=== PATIENT | female | born 1945 | race Caucasian/White ===

== ENCOUNTER → 2024-04-16 07:51 | Outpatient (REF) | payer OTHER, SELFPAY | LOC: HWRAD 07:51 | PROVIDERS: FAMILY PHYSICIAN Hospitalist | DX: R41.0 Disorientation, unspecified (principal) | CPT/HCPCS: 70450 ==

== ENCOUNTER 2024-05-12 15:42 | Emergency (ER) | payer OTHER, MEDICARE, SELFPAY ==
[2024-05-12 15:46] VITALS: BP 204/98
[2024-05-12 16:07] LABS: % Basophils 0.5 % (0-2); % Eosinophils 0.6 % (0-6); % Immature Granulocytes 0.5 % (0-0.5); % Lymphocytes 23.2 % (20.5-51.1); % Monocytes 8.1 % (1.7-9.3); % Neutrophils 67.1 % (42.2-75.2); Absolute Eosinophils 0.1 10^3/uL (0-0.7); Absolute Monocytes 0.7 10^3/uL (0.1-0.6); Absolute Neutrophils 5.8 10^3/uL (1.4-6.5); Hematocrit 42.6 % (37.0-47.0); Hemoglobin 14.2 g/dL (12.0-16.0); Mean Corp Hgb Conc. 33.3 g/dL (33.0-37.0); Mean Corpuscular Hgb 29.2 pg (27.0-31.0); Mean Corpuscular Volume 87.5 fL (81.0-99.0); Mean Platelet Volume 9.8 fL (7.4-10.4); Nucleated Red Blood Cells % 0 %; Platelet Count 279 10^3/uL (130-400); Red Blood Cell Count 4.87 10^6/uL (4.20-5.40); Red Cell Dist. Width 12.2 % (11.5-14.5); White Blood Cell Count 8.7 10^3/uL (4.8-10.8)
--- NOTE | 2024-05-12 16:30 | ED.GENMED ---
History of Present Illness
General
Chief Complaint: Change in Mental Status
Source: patient and family (Daughter at bedside)
Exam Limitations: altered mental status
Time Seen by Provider: 05/12/24 16:24
Nursing documentation reviewed up to this point in time: agreed with
History of Present Illness
History of Present Illness:
78-year-old female with history of Alzheimer's, A-fib, HTN, HLD, GERD, pacemaker presents with her Daughter in law, Spring, who is primary childcare administrator at bedside who states pt has been more confused lately. States over past month pt has had
decrease in personal skills, increase in confusion.
One month ago had 'slightly positive' urine infection and finished 10 days antibiotics (she thinks Keflex) finished on 04/25/24.
Today states she took pt to [facility] today for f/u blood work and repeat U/A and pt was incontinent of urine and stool in her depends so they could not do U/A
She is requesting 'straight cath U/A and head CT'
Spring, states pt had head CT scan one month ago showing nothing acute.
Past History
Past History
ED Past Medical History: Arrthythmia (Afib), GERD, HTN, Hypercholesterolemia and Other (Alzheimer's )
ED Past Surgical History: Cardiac (pacemaker)
Social History
Tobacco: Non-smoker
Alcohol: None
Living: assisted living
Review of Systems
Review of Systems
Allergies reviewed?: Yes
All Other Systems: ROS reviewed and negative except as documented in HPI and ROS
Constitutional: Denies fever
Respiratory: Denies cough or trouble breathing
Cardiac: Denies chest pain
ABD/GI: Denies abdominal pain, nausea, vomiting, diarrhea or anorexia
: Reports incontinence; Denies dysuria or difficulty voiding
Musculoskeletal: Reports no symptoms
Skin: Reports no symptoms
Neurological: Reports no symptoms
Phy Exam
Physical Exam
Physical Exam:
GENERAL: No acute distress. Alert, disoriented.
CONSTITUTIONAL: Afebrile.
EYES: clear, conjunctivae normal
ENMT: moist mucus membranes
RESPIRATORY: Regular respirations, nonlabored, lungs clear.
CARDIOVASCULAR: Regular rate and rhythm, no murmurs, no rubs.
GI: Soft, nontender, normal BS
MUSCULOSKELETAL: Moves with ease. Well perfused. No edema
SKIN: Warm, dry, pink
PSYCH: Normal mood and affect. Well kept, interactive, confused
NEUROLOGIC: Awake, alert, confused. No focal neurological deficits
Course
Orders/Labs/Results
Orders:
Orders
05/12/24 15:58
C-Reactive Protein Urgent
Comment: ADD ON
Complete Blood Count/With Diff Urgent
Comprehensive Metabolic Panel Urgent
Erythrocyte Sed Rate Urgent
Comment: ADD ON
05/12/24 16:47
Straight cath- Treatment ONCE
CR Chest - 2 Views Urgent
Comment:
Reason For Exam: mental state chnge
05/12/24 17:32
COVID-19 Antigen Urgent
Source: Nasal Swab
Urinalysis Reflex To Culture Urgent
Date Specimen was Collected: 05/12/24
Time Specimen was Collected: 17:28
Urine Microscopic Reflex Cult Urgent
Influenza A+B Rapid Molecular Urgent
BRENNAN Source: Nasal Swab
Specimen Description:
05/12/24 18:32
CT Head W/o Iv Contrast Urgent
Comment:
Reason For Exam: more confused
05/12/24 18:40
Add On- LAB Urgent
Tests Added?: Sed rate, CRP
Abnormal Lab Results
05/12/24 05/12/24
15:58 17:32
Absolute Monos (auto) 0.7 H 10^3/uL
(0.1-0.6)
BUN 20 H mg/dl
(7-17)
Glucose 115 H mg/dl
(70-99)
Albumin 5.1 H g/dl
(3.5-5.0)
Ur Occult Blood Reflex 2+ A
(Negative)
Urine RBC 3-6 A /HPF
(0-2)
Urine Albumin (Reflex) 2+ A
(Neg - Trace)
05/12/24 15:58
05/12/24 15:58
Vital Signs
Initial and Last Documented VS:
Initial Vital Signs
Temp Pulse Resp BP Pulse Ox
97.5 F 91 18 204/98 97
05/12/24 15:46 05/12/24 15:46 05/12/24 15:46 05/12/24 15:46 05/12/24 15:46
Last Documented Vital Signs
Temp Pulse Resp BP Pulse Ox
97.5 F 70 17 140/94 97
05/12/24 15:46 05/12/24 18:45 05/12/24 18:45 05/12/24 20:00 05/12/24 20:00
MDM/Problems Addressed
Differential Diagnosis Includes:
Alzheimer's progression, UTI
MDM/Problems Addressed:
78-year-old female with history of Alzheimer's, A-fib, HTN, HLD, GERD, pacemaker presents with her Daughter in law, Spring, who is primary childcare administrator at bedside who states pt has been more confused lately. States over past month pt has had
decrease in personal skills, increase in confusion.
One month ago had 'slightly positive' urine infection and finished 10 days antibiotics (she thinks Keflex) finished on 04/25/24.
Today states she took pt to [facility] today for f/u blood work and repeat U/A and pt was incontinent of urine and stool in her depends so they could not do U/A
She is requesting 'straight cath U/A and head CT'
Spring, states pt had head CT scan one month ago showing nothing acute.
CBC, CMP unremarkable
U/A: no infection
CXR: NAD
Records reviewed:
Had CT scan 04/16/24 showing chronic microvascular white matter ischemia disease, no change from previous in 01/2024
Although I explained that mini strokes won't typically show on CT, would need MRI, Spring insistent on getting another head CT.
8:[address] radiology report read: IMPRESSION:
No acute intracranial abnormality noted.
Stable chronic findings
*Critical Care Note
Total Time (30-74mins, 75-104mins- exclusive of procedures): Not Applicable
ED Attending Note
-
Portions of this chart may have been created with voice recognition software.� Occasional wrong word or��sound alike� substitutions may have occurred due to the inherent limitations of voice recognition software.
Discharge Plan
Departure
Patient Disposition: Home (Routine Discharge)
Date of Disposition: 05/12/24
Time of Disposition: 20:10
Patient with high blood pressure during this ER visit?: No
Condition: Good
Discharge Problem:
Dementia
Instructions: Dementia (DC)
Referrals:
Gisel Larose, DO [Family Provider] - As needed
Activity Restrictions/Additional Instructions:
As we discussed, Jinny's workup here shows nothing worrisome.
This may be progression of dementia.
Interventions
Interventions:
*Risk Screen - Suicide Last Done: 05/12/24 15:46
*General Assessment Last Done: 05/12/24 15:46
*Neglect/Abuse Screening Last Done: 05/12/24 15:46
ED- Fall Risk Assessment Last Done: 05/12/24 19:11
*ED COVID-19 Vaccine History Last Done: 05/12/24 15:46
ED- Pulmonary Assessment Last Done: 05/12/24 19:11
ED- Neurological Assessment Last Done: 05/12/24 19:11
ED- Cardiac Assessment Last Done: 05/12/24 19:11
ED Swallowing Screen Last Done: 05/12/24 19:11
Discharge Date and Time
Print Language: UZBEK
[2024-05-12 16:37] LABS: ALT (SGPT) 17 U/L (0-35); AST (SGOT) 25 U/L (14-36); Albumin 5.1 g/dl (3.5-5.0); Alkaline Phosphatase 66 U/L (38-126); Blood Urea Nitrogen 20 mg/dl (7-17); Calcium 9.4 mg/dl (8.4-10.2); Carbon Dioxide 24 mmol/L (22-30); Chloride 103 mmol/L (98-107); Glucose 115 mg/dl (70-99); Potassium 3.5 mmol/L (3.5-5.1); Sodium 140 mmol/L (135-145); Total Protein 7.5 g/dl (6.3-8.2); eGFR > 60.00
[2024-05-12 17:32] VITALS: BP 182/80
[2024-05-12 17:55] LABS: Urine Albumin 2+ (Neg - Trace); Urine Bilirubin Negative (Negative); Urine Character Clear (Clear); Urine Color Yellow; Urine Glucose Negative (Negative); Urine Ketone Negative (Negative); Urine Leukocyte Negative (Negative); Urine Nitrite Negative (Negative); Urine Occult Blood 2+ (Negative); Urine Urobilinogen Negative (Neg - 1+)
[2024-05-12 18:04] LABS: COVID-19 Antigen Negative (Negative)
[2024-05-12 19:00] VITALS: BP 191/84
[2024-05-12 19:06] LABS: Urine Calcium Oxalate Crystals Present
[2024-05-12 19:07] LABS: Urine Urothelial Cell 0-2 /LPF (FEW)
[2024-05-12 19:26] LABS: C-Reactive Protein < 5.00 mg/L (0.0-10.00); Erythrocyte Sed Rate 18 mm/hour (0-20)
[2024-05-12 20:00] VITALS: BP 140/94
== END 2024-05-12 20:32 | disposition home or self-care (01) ==
LOC: EMR 15:42
PROVIDERS: Registered Nurse; EMERGENCY PHYSICIAN Student in an Organized Health Care Education/Training Program; FAMILY PHYSICIAN Hospitalist; OTHER PHYSICIAN Internal Medicine Cardiovascular Disease
DX: G30.9 Alzheimer's disease, unspecified (principal); F02.80 Dementia in other diseases classified elsewhere, unspecified severity, without behavioral disturbance, psychotic disturbance, mood disturbance, and anxiety; R32 Unspecified urinary incontinence; I10 Essential (primary) hypertension; Z11.52 Encounter for screening for COVID-19; K21.9 Gastro-esophageal reflux disease without esophagitis; Z95.0 Presence of cardiac pacemaker; I48.91 Unspecified atrial fibrillation
CPT/HCPCS: 99285; 51701; 70450; 71046; 80053; 81003; 81015; 85025; 85652; 86140; 87502; 87811

== ENCOUNTER → 2024-06-18 10:52 | Outpatient (REF) | payer MEDICARE, OTHER, SELFPAY ==
[2024-06-18 11:21] LABS: % Basophils 0.8 % (0-2); % Immature Granulocytes 0.2 % (0-0.5); % Lymphocytes 38.1 % (20.5-51.1); % Monocytes 6.2 % (1.7-9.3); % Neutrophils 52.7 % (42.2-75.2); Absolute Eosinophils 0.1 10^3/uL (0-0.7); Absolute Lymphocytes 1.9 10^3/uL (1.2-3.4); Absolute Monocytes 0.3 10^3/uL (0.1-0.6); Absolute Neutrophils 2.6 10^3/uL (1.4-6.5); Hematocrit 42.7 % (37.0-47.0); Hemoglobin 13.9 g/dL (12.0-16.0); Mean Corp Hgb Conc. 32.6 g/dL (33.0-37.0); Mean Corpuscular Hgb 29.1 pg (27.0-31.0); Mean Corpuscular Volume 89.3 fL (81.0-99.0); Mean Platelet Volume 10.3 fL (7.4-10.4); Nucleated Red Blood Cells % 0 %; Platelet Count 291 10^3/uL (130-400); Red Blood Cell Count 4.78 10^6/uL (4.20-5.40); Red Cell Dist. Width 12.5 % (11.5-14.5)
[2024-06-18 11:55] LABS: ALT (SGPT) 14 U/L (0-35); AST (SGOT) 20 U/L (14-36); Albumin 4.2 g/dl (3.5-5.0); Alkaline Phosphatase 85 U/L (38-126); Blood Urea Nitrogen 20 mg/dl (7-17); Calcium 9.5 mg/dl (8.4-10.2); Carbon Dioxide 24 mmol/L (22-30); Chloride 108 mmol/L (98-107); Glucose 110 mg/dl (70-99); Potassium 4.5 mmol/L (3.5-5.1); Sodium 139 mmol/L (135-145); Total Bilirubin 0.7 mg/dl (0.2-1.3); Total Protein 6.6 g/dl (6.3-8.2); eGFR > 60.00
[2024-06-18 12:37] LABS: Glycohemoglobin (HgbA1c) 5.5 % (4.0-5.6)
== END ==
LOC: OLABMERCHI 10:52
PROVIDERS: FAMILY PHYSICIAN Hospitalist
DX: R73.01 Impaired fasting glucose (principal)
CPT/HCPCS: 36415; 80053; 83036; 85025

== ENCOUNTER 2024-09-24 15:11 | Inpatient (IN) | payer MEDICARE, SELFPAY ==
[2024-09-22 21:34] VITALS: BP 103/51
[2024-09-22 21:55] LABS: Hematocrit 39.1 % (37.0-47.0); Hemoglobin 13.0 g/dL (12.0-16.0); Mean Corp Hgb Conc. 33.2 g/dL (33.0-37.0); Mean Corpuscular Volume 86.7 fL (81.0-99.0); Nucleated Red Blood Cells % 0 %; Platelet Count 261 10^3/uL (130-400); Red Cell Dist. Width 12.5 % (11.5-14.5)
[2024-09-22 22:14] LABS: ALT (SGPT) 13 U/L (0-35); AST (SGOT) 22 U/L (14-36); Albumin 4.6 g/dl (3.5-5.0); Alkaline Phosphatase 53 U/L (38-126); Blood Urea Nitrogen 53 mg/dl (7-17); Calcium 9.4 mg/dl (8.4-10.2); Carbon Dioxide 24 mmol/L (22-30); Chloride 114 mmol/L (98-107); Glucose 111 mg/dl (70-99); Potassium 3.4 mmol/L (3.5-5.1); Sodium 146 mmol/L (135-145); Total Protein 7.0 g/dl (6.3-8.2); eGFR 38.51
[2024-09-22 23:24] VITALS: BP 126/110; BMI 22.9
[2024-09-23] VITALS (16 sets, daily range): BP systolic 91–157; BP diastolic 41–110; PULSE 76; O2SAT 95; BMI 22.9; BMI 23.6
--- NOTE | 2024-09-23 00:30 | ED.GENMED ---
History of Present Illness
General
Chief Complaint: Change in Mental Status
Source: patient and family
Exam Limitations: none
Time Seen by Provider: 09/23/24 00:20
History of Present Illness
History of Present Illness:
See MDM
Past History
Past History
ED Past Medical History: Arrthythmia (Afib), GERD, HTN, Hypercholesterolemia and Other (Alzheimer's )
ED Past Surgical History: Cardiac (pacemaker)
Social History
Tobacco: Non-smoker
Alcohol: None
Living: assisted living
Phy Exam
Physical Exam
Physical Exam:
See MDM
Sepsis
Sepsis Screening
Sepsis Assessment: Sepsis Ruled Out
Sepsis Screen
Sepsis Screen: Sepsis Ruled Out
Date: 09/23/24
Time: 01:22
Course
Orders/Labs/Results
Orders:
Orders
09/22/24 21:39
Electrocardiogram (*1) Urgent
Reason for Study: Other
Other Reason for Exam: Possible Sepsis
IV Insert/Care/Rem.- Treatment PRN
09/22/24 21:47
Complete Blood Count/With Diff Urgent
Comprehensive Metabolic Panel Urgent
09/23/24 00:30
0.9% Sodium Chloride 1000 ml [Nss] 1,000 ml IV BOLUS
09/23/24 02:09
Urinalysis Reflex To Culture Urgent
Date Specimen was Collected: 09/23/24
Time Specimen was Collected: 02:08
Urine Microscopic Reflex Cult Urgent
Urine Culture Urgent
BRENNAN Source: U
Specimen Description:
Date Specimen was Collected: 09/23/24
Time Specimen was Collected: 02:08
09/23/24 03:16
Fosfomycin [Monurol] 3 gm PO ONCE ONE
Abnormal Lab Results
09/22/24 09/23/24
21:47 02:09
Absolute Lymphs (auto) 3.5 H 10^3/uL
(1.2-3.4)
Sodium 146 H mmol/L
(135-145)
Potassium 3.4 L mmol/L
(3.5-5.1)
Chloride 114 H mmol/L
(98-107)
BUN 53 H mg/dl
(7-17)
Creatinine 1.4 H mg/dL
(0.6-1.0)
Glucose 111 H mg/dl
(70-99)
Total Bilirubin 1.4 H mg/dl
(0.2-1.3)
Urine WBC (Reflex) 16-20 A /HPF
(0-5)
Urine Bacteria (Reflex) Moderate A
(Negative)
Urine Albumin (Reflex) 1+ A
(Neg - Trace)
09/22/24 21:47
09/22/24 21:47
Vital Signs
Initial and Last Documented VS:
Initial Vital Signs
Temp Pulse Resp BP Pulse Ox
98.4 F 73 18 103/51 93
09/22/24 21:34 09/22/24 21:34 09/22/24 21:34 09/22/24 21:34 09/22/24 21:34
Last Documented Vital Signs
Temp Pulse Resp BP Pulse Ox
97.7 F 70 14 109/65 95
09/23/24 02:25 09/23/24 01:45 09/23/24 01:45 09/23/24 01:00 09/23/24 01:30
MDM/Problems Addressed
Differential Diagnosis Includes:
Note:
CHIEF COMPLAINT(S)
Confusion and behavioral changes.
HISTORY OF PRESENT ILLNESS
The patient is a 78-year-old female with a history suggestive of susceptibility to urinary tract infections (UTIs), presenting with increased confusion and behavioral changes. Significant changes noted include refusal to get out of bed,
belligerence, and inappropriate behavior over the past days. These symptoms have been associated with an increase in her Seroquel (quetiapine) dosage approximately one month ago, with a recent dose increase prior to the current episode. According to
the family, she has exhibited poor oral intake and possible signs of dehydration. There is also mention of ataxic walking and repetitive behaviors. The patients primary care and neurology providers have been involved and are considering dehydration
and a UTI as potential causes. The patient reports no headaches, chest pain, shortness of breath, known fever, or classic UTI symptoms, although there is mention of changes in urine odor. The family confirms a decrease in fluid intake, correlating
with observed dry oral mucosa. Emergency department intervention will include intravenous fluids and urinalysis to investigate possible infection.
Patient lives at [facility] and family indicating that the staff is suggesting that she now needs 24-hour care
ADDITIONAL HISTORY OBTAINED FROM SOURCES OTHER THAN THE PATIENT
According to the family, a recent increase in quetiapine was made by the neurologist, and the patient exhibited drastic changes in her mental state concurrently. Additionally, the family reports decreased food and fluid intake, and the independent
living facility suggests she may require 24-hour care.
PHYSICAL EXAM
General: Well appearing and non-toxic
HEENT: protecting airway. Dry mucous membranes
Neck: appears supple
CV: No evidence of cyanosis
Resp: No accessory muscle use
Abd: Non-distended. Soft and nontender
Extremities: No deformities
Neuro: alert
Psych: Normal affect
Skin: Intact
- Nursing notes reviewed and vital signs reviewed.
PLAN
- Administer intravenous fluids for dehydration.
- Obtain and analyze urine sample to rule out infection.
- Consider empirical antibiotic treatment with fosfomycin (Monurol) pending urinalysis results.
- Evaluate potential need for increased care level at nursing facility, coordinate with case management, and consider admission for physical therapy.
- Discuss with family the decrease in oral intake and possible medication review or adjustment for quetiapine based on symptoms.
DIFFERENTIAL DIAGNOSIS
The Differential Diagnosis includes, in no particular order and is not limited to:
- Urinary tract infection
- Dehydration
- Medication side effects (Seroquel)
- Stroke or transient ischemic attack
- Dementia progression
- Hypernatremia
- Delirium
- Depression or other psychiatric conditions
- Electrolyte imbalance
- Acute confusion due to systemic infection
SUMMARY OF ENCOUNTER
The patient, a 78-year-old female with a history suggestive of prior strokes and susceptibility to urinary tract infections, was seen in the emergency department due to increased confusion and behavioral changes. Significant changes noted include
refusal to get out of bed, belligerence, and inappropriate behavior, which had been associated with an increase in her Seroquel dosage. Her symptoms include poor oral intake and possible dehydration. A urinalysis was ordered due to suspected UTI and
hydration issues. Intervention included administering intravenous fluids and empirical antibiotic treatment with fosfomycin, considering the presence of bacteria in the urine. Also, given the patients altered mental status and decreased care
capacity, admission was planned for further evaluation.
DISPOSITION
The patient will be admitted overnight for physical therapy evaluation, case management, and further disposition planning.
MANAGEMENT OF THE PATIENTS CARE WAS DISCUSSED WITH
Family and hospice were involved in discussions regarding the patients need for a higher level of care as suggested by her independent living facility.
MEDICATION RECONCILIATION
Fosfomycin was prescribed empirically for suspected UTI due to the presence of bacteria in the urine. Intravenous fluids were administered for dehydration.
MEDICAL DECISION MAKING
1. Number & Complexity of Problems: Chronic conditions affecting care include susceptibility to urinary tract infections and possible prior strokes. Differential diagnoses considered include UTI, dehydration, medication side effects, stroke or
transient ischemic attack, dementia progression, delirium, and electrolyte imbalance.
2. Data Reviewed: Urine sample analysis revealing bacteria prompted the initiation of empirical antibiotic therapy and consideration of admission for hydration and further evaluation.
3. Risk: Consideration of admission was made due to the complexity and risk associated with dehydration, UTIs, and the patients altered mental status. Outpatient management was deemed inappropriate based on the need for further evaluation and lack
of adequate care at the current facility.
PATHOLOGIES TO CONSIDER
Delirium, dehydration, urinary tract infection, medication side effects, stroke or transient ischemic attack, dementia progression, systemic infection causing acute confusion.
*Pulse Oximetry
SaO2: 96
Oxygen Mode of Delivery: Room air
Patient hypoxic: no
*Critical Care Note
Total Time (30-74mins, 75-104mins- exclusive of procedures): Not Applicable
ED Attending Note
-
Portions of this chart may have been created with voice recognition software.� Occasional wrong word or��sound alike� substitutions may have occurred due to the inherent limitations of voice recognition software.
Discharge Plan
Departure
Patient Disposition: Admit
Date of Disposition: 09/23/24
Time of Disposition: 03:21
Admit to: Med/Surg
Presentation/result/management discussed w/ accepting MD/DO: Hospitalist
Discharge Problem:
Acute dehydration, Altered mental status
Referrals:
Gisel Larose DO [Family Provider, General]
Interventions
Interventions:
*Risk Screen - Suicide Last Done: 09/22/24 21:34
*General Assessment Last Done: 09/22/24 23:26
*Neglect/Abuse Screening Last Done: 09/22/24 21:34
*ED- Fall Risk Assessment Last Done: 09/22/24 23:25
*ED COVID-19 Vaccine History Last Done: 09/22/24 23:25
ED- Neurological Assessment Last Done: 09/22/24 23:27
ED- Cardiac Assessment Last Done: 09/22/24 23:28
Discharge Date and Time
Print Language: TURKISH
[2024-09-23] MEDS: NSS 1000 IV (00:40)
[2024-09-23 02:19] LABS: Urine Character Slightly Cloudy (Clear)
[2024-09-23 03:03] LABS: Urine Red Blood Cell None Seen /HPF (0-2); Urine White Cell 16-20 /HPF (0-5)
[2024-09-23] MEDS: MONUROL 3 GM PO (03:33)
--- NOTE | 2024-09-23 05:24 | HPS.HSE ---
Family Physician
-
Family Physician: Gisel Larose DO
Chief Complaint
-
Altered mental status
History of Present Illness
This is a 78-year-old who has past medical history significant for dementia, atrial fibrillation on anticoagulation, hyperlipidemia, GERD and hypertension who presents to the emergency department with worsening declining mental status.
According to family members at the bedside patient has been diagnosed with dementia likely Alzheimer's for several months now. They noticed today that she started having a significant decline about 1 month ago when her behavior started to change.
She often returns back to her baseline. However for the last 1 week she has remained in an altered state compared to baseline.
Family members reported that since the last 1 week after trip to a wedding ceremony the patient has been more belligerent. She has not been eating. She has been pushing family away. She has been compliant with her medications and there have been
slight increases in Seroquel for agitation. She has continued to take her Namenda.
Family reports no sick contacts. They do not think she has a urinary tract infection although she has had several in the past. She has not been having any vomiting. They did note intermittent loose stools but not frequent diarrhea. She has not
had any fevers or chills. She has not had any falls. It has been no focal deficits.
In the emergency department the patient was afebrile, blood pressure was 110/60 with a pulse of 71. She is satting 95% on room air.
ECG shows paced rhythm.
CBC was unremarkable. Electrolytes notable for SENG with a creatinine of 1.4 up from 0.8 at baseline. She has mild hypokalemia to 3.4 and a sodium of 146.
UA is generally negative only with WBCs and moderate bacteria but no leukocyte esterase or nitrite.
Medical History
Past Medical History
Past Medical History: Reports Arrhythmia (Atrial fibrillation status post ablation, pacemaker placement), Dementia, GERD, HTN, Hypercholesterolemia and Other
Past Surgical History: Reports None
Social History
Tobacco: Non-smoker
Alcohol: None
Drug: None
Personal:
Living: With Family
Employment: Retired
Family History
Family History: Not pertinent
Allergies / Home Medications
Allergies reflects when Allergies were last updated in [employer].
Home Medications with original date entered in [employer]
Allergy/Medication List:
Allergies
Allergy/AdvReac Type Severity Reaction Status Date / Time
Calcium Channel Blocking Allergy Unknown Verified 05/12/24 15:48
Agent Dilt
Valsartan 80 mg tablet, 80 mg p.o. daily
Pantoprazole 20 mg tablet, 20 mg p.o. daily
Carvedilol 6.25 mg tablets, 6.5 mg p.o. twice daily
Namenda 10 mg tablet, 10 mg p.o. twice daily
Rivastigmine 13.3 mg patch, 30.3 mg daily
Xarelto 15 mg tablet, 50 mg p.o. every afternoon
Atorvastatin 40 mg tablets, 40 mg p.o. at bedtime
Seroquel 25 mg tablet, 25 mg p.o. in the a.m.
Seroquel 50 mg tablet, 50 mg p.o. at bedtime
Review of Systems
-
Unable to obtain full review of systems at this time due to: Dementia
History Source: Family
Constitutional: Reports Sleep Disturbance
EENT: Reports No Symptoms
Respiratory: Reports No Symptoms
Cardiac: Reports No Symptoms
Abdomen/GI: Reports No Symptoms
: Reports No Symptoms
Musculoskeletal: Reports No Symptoms
Skin: Reports No Symptoms
Neurological: Reports No Symptoms
Endocrine: Reports No Symptoms
Hematologic/Lymphatic: Reports No Symptoms
Psych: Reports Anxiety and Other (Agitation and combativeness)
Physical Exam
Vital Signs
Vital Signs
Temp Pulse Resp BP Pulse Ox
97.7 F 72 17 103/62 95
09/23/24 02:25 09/23/24 04:00 09/23/24 04:00 09/23/24 03:00 09/23/24 03:45
Physical Exam
General: Well Developed, Well Nourished and No Apparent Distress
HEENT: NormoCephalic, Moist mucous membranes and Atraumatic
Respiratory: Clear
Cardiac: S1/S2 and Regular Rhythm; No Murmur or Rub
GI: Soft, Non Tender, Non Distended and Normal Bowel Sounds; No Organomegaly
Rectal: Deferred by Provider
Musculoskeletal: No Clubbing, No Cyanosis and No Edema
Skin: No Rash
Neuro: Alert and Oriented (Oriented to person only)
Hematologic/Lymphatic: No Lymphadenopathy
Psych: Calm
Laboratory Results
-
09/22/24 21:47
09/22/24 21:47
Laboratory Results
Total Bilirubin 1.4 mg/dl (0.2-1.3) H 09/22/24 21:47
AST 22 U/L (14-36) 09/22/24 21:47
ALT 13 U/L (0-35) 09/22/24 21:47
Alkaline Phosphatase 53 U/L (38-126) 09/22/24 21:47
Data Reviewed
-
Medical Tests (Nuc Med, Echo, EKG etc): Image Personally Visualized and interpreted
Lab Data: Labs Reviewed by me
Old Records: Reviewed
Impression/Plan
-
IMPRESSION:
78-year-old with history of dementia likely of Alzheimer's type, atrial fibrillation on anticoagulation with Xarelto, hypertension, hyperlipidemia, GERD who presents to the emergency department after 1 week of changes in mental status. This is
typified by more aggressive behavior otherwise somnolence and belligerence. The UA shows WBCs and bacteria but no nitrites or leukocyte esterase and she has no urinary symptoms otherwise. She has no other signs of an acute infection. She has SENG
with mild hypokalemia and hyponatremia. Suspect dehydration due to low p.o. intake but likely not the etiology of decline. Patient is generally suspected to decline progressively over time but appears to have had a steep decline lately.
PLAN:
Altered mental status -staff decline in progressive dementia without any acute cause and no focal logical deficit
-Admit to MedSurg
-Will obtain CT head to rule out a subacute stroke
-Check COVID, influenza
-Check TSH, B12 folate TSH and RPR
-Urine culture sent
-Status post fosfomycin x 1
-Hydration
-Continue on Namenda twice daily, continue the Seroquel
� Consider psych consult
- PT eval
SENG�mild SENG with prerenal azotemia appearing labs
- Continue gentle hydration with lactated Ringer's at this time. R
replete K, mag
- Hold valsartan
Atrial fibrillation
-Continue Xarelto
- Continue Coreg
DVT prophylaxis�on Xarelto
CODE STATUS�full code, family to call with more detailed information in the morning
[2024-09-23 06:31] LABS: Hematocrit 36.0 % (37.0-47.0); Hemoglobin 11.8 g/dL (12.0-16.0); Mean Corp Hgb Conc. 32.8 g/dL (33.0-37.0); Mean Corpuscular Volume 88.9 fL (81.0-99.0); Platelet Count 226 10^3/uL (130-400); Red Cell Dist. Width 12.2 % (11.5-14.5)
[2024-09-23] MEDS: LR 1000 IV ×2 (06:41→18:24)
[2024-09-23 06:59] LABS: Ammonia < 9 umol/L (9-30)
[2024-09-23 07:00] LABS: Blood Urea Nitrogen 43 mg/dl (7-17); Calcium 8.4 mg/dl (8.4-10.2); Carbon Dioxide 23 mmol/L (22-30); Chloride 117 mmol/L (98-107); Estimated Creatinine Clearance 37 ml/min; Glucose 110 mg/dl (70-99); Magnesium 1.9 mg/dl (1.6-2.3); Potassium 3.0 mmol/L (3.5-5.1); Sodium 146 mmol/L (135-145); eGFR 57.66
[2024-09-23 07:02] LABS: COVID-19 Antigen Negative (Negative)
[2024-09-23 07:31] LABS: TSH 1.37 uIU/ml (0.47-4.68)
[2024-09-23] MEDS: PROTONIX 20 MG PO (07:38)
[2024-09-23] MEDS: NAMENDA 10 MG PO ×2 (07:38→19:53)
[2024-09-23] MEDS: SEROQUEL 25 MG PO (07:38)
[2024-09-23] MEDS: COREG 6.25 MG PO ×2 (07:38→19:53)
[2024-09-23 07:50] LABS: Vitamin B12 369 pg/ml (239-931)
[2024-09-23] MEDS: EXELON PATCH 13.3 MG TRANSDERM (08:17)
--- NOTE | 2024-09-23 09:37 | PTCARENOTE ---
Spoke w/ daughter Spring - she spoke w/ textile cutting machine operator who said her pacemaker is MRI compatible - [employer] MRI quad VF4 model #[id number]
--- NOTE | 2024-09-23 12:17 | CM ---
CM reviewed chart and spoke to pt's daughter Spring over the phone. MALIKA reviewed.
Pt lives alone in [place] apartment at [facility].
Independent in ADLs, personal care and ambulation.
Per Spring, [facility] recently suggested higher LOC or 24 hour caregivers as pt becoming increasingly confused.
Spring lives close and provides support, is interested in Memory Care Units.
List of SNF with memory care units and list of caregiver agencies left at bedside. I encouraged her daughter to read facility reviews on Medicare.gov.
PCP: Gisel Larose
Pharmacy: [facility]
Discharge plan: Pending ongoing medical evaluation
--- NOTE | 2024-09-23 13:45 | W.PN.UPDATE ---
Update Note
Progress Note Update
Seen and admitted by Dr. Law.
Lady with dementia admitted with worsening and out of function and noted to have SENG and as well as possibility of UTI. Patient currently afebrile hemodynamically stable. She thought she is in [place]. She was corrected easily. She is
redirectable. No agitation noted by RN. Improved creatinine noted. Continue with the current treatments including IV fluids. Follow urinary culture data.
[2024-09-23] MEDS: KCL 40 MEQ PO (14:16)
[2024-09-23] MEDS: LIPITOR 40 MG PO (17:10)
[2024-09-23] MEDS: XARELTO 15 MG PO (17:10)
[2024-09-23] MEDS: SEROQUEL 50 MG PO (21:45)
[2024-09-24 07:35] VITALS: BP 130/81
[2024-09-24 07:46] LABS: Hematocrit 34.8 % (37.0-47.0); Hemoglobin 11.6 g/dL (12.0-16.0); Mean Corp Hgb Conc. 33.3 g/dL (33.0-37.0); Mean Corpuscular Volume 86.4 fL (81.0-99.0); Platelet Count 226 10^3/uL (130-400); Red Cell Dist. Width 12.0 % (11.5-14.5)
[2024-09-24] MEDS: LR 1000 IV (08:15)
[2024-09-24] MEDS: PROTONIX 20 MG PO (08:33)
[2024-09-24] MEDS: NAMENDA 10 MG PO ×2 (08:33→19:43)
[2024-09-24] MEDS: COREG 6.25 MG PO ×2 (08:33→19:43)
[2024-09-24] MEDS: SEROQUEL 25 MG PO (08:33)
[2024-09-24] MEDS: EXELON PATCH 13.3 MG TRANSDERM (08:55)
--- NOTE | 2024-09-24 10:22 | CM ---
Addendum entered by Maggy Gardner 09/24/24 10:24:
call placed to daughter, Daughter is asking for OT consult and reviewing options for placement. Plan to meet later today to review options. CM will continue to follow for discharge planning needs.
Original Note:
Patient seen at bedside with aide present. Patient stated that she was doing well. CM will call to patient daughter and review next steps. Physical therapy recommending 24/7 supervision for safety. CM will continue to follow for discharge planning
needs.
Plan:Memory Care/personal care for cognition supports.
[2024-09-24 11:11] LABS: Blood Urea Nitrogen 24 mg/dl (7-17); Calcium 8.9 mg/dl (8.4-10.2); Carbon Dioxide 23 mmol/L (22-30); Chloride 117 mmol/L (98-107); Estimated Creatinine Clearance 46 ml/min; Glucose 93 mg/dl (70-99); Potassium 4.1 mmol/L (3.5-5.1); Sodium 145 mmol/L (135-145); eGFR > 60.00
--- NOTE | 2024-09-24 11:40 | W.PN.HOSP.TC ---
Today's Communication/Plan
-
Hold further IV fluids. Encourage oral intake.
Follow urine culture data
Follow-up PT OT eval
DC planning
Assessment / Plan
Assessment / Plan
78-year-old with history of dementia likely of Alzheimer's type, atrial fibrillation on anticoagulation with Xarelto, hypertension, hyperlipidemia, GERD who presents to the emergency department after 1 week of changes in mental status. This is
typified by more aggressive behavior otherwise somnolence and belligerence. The UA shows WBCs and bacteria but no nitrites or leukocyte esterase and she has no urinary symptoms otherwise. She has no other signs of an acute infection. She has SENG
with mild hypokalemia and hyponatremia. Suspect dehydration due to low p.o. intake but likely not the etiology of decline. Patient is generally suspected to decline progressively over time but appears to have had a steep decline lately.
PLAN:
Altered mental status
Decline than her baseline dementia status
Patient noted to be in SENG and there is a concern about possible UTI with pyuria.
No acute GI losses evident. No obvious external bleeding. Tolerating oral diet.
Patient received antibiotics in the ER. Follow urine culture data.
Check PT OT eval and follow the family regarding her current cognitive state compared to baseline
SENG�mild SENG with prerenal azotemia appearing labs
- Normalized creatinine. Hold further IV fluids.
- Hold valsartan
Atrial fibrillation
-Continue Xarelto
- Continue Coreg
DVT prophylaxis�on Xarelto
CODE STATUS�full code
Anticipated Discharge: Within 24 hours
Subjective/Interval History
-
Date of Service: September 24, 2024
Patient is confused but pleasant and no agitation.
Voicing no specific complaints.
Discussed with RN-no overnight events.
Patient eating and drinking without nausea or vomiting.
Objective Data
-
Labs:
Laboratory Results
09/24/24
07:29
WBC 4.8
Hgb 11.6 L
Hct 34.8 L
Plt Count 226
Sodium 145
Potassium 4.1 D
Chloride 117 H
Carbon Dioxide 23
BUN 24 H
Creatinine 0.8
Glucose 93
Calcium 8.9
Vital Signs:
Vital Signs
Temp Pulse Resp BP Pulse Ox
97.6 F 72 17 130/81 97
09/24/24 07:35 09/24/24 08:33 09/24/24 07:35 09/24/24 08:33 09/24/24 07:35
I&O
09/23/24 09/24/24 09/25/24
06:59 06:59 06:59
Intake Total 900 / 900
Balance 900 / 900
Review of Systems
-
Unable to obtain full review of systems at this time due to: Dementia
Physical Exam
-
Respiratory: Non Labored Respirations; Negative Accessory Resp Muscle Use
Cardiac: Regular Rhythm and S1/S2; Negative Tachycardic
GI: Soft and Nontender
Neuro: Awake, Alert and Oriented (Self only)
Psych: Calm and Confused; Negative Agitated
Data Reviewed
-
Labs: Labs Reviewed by me
[2024-09-24 15:06] VITALS: BP 116/63
[2024-09-24] MEDS: SEROQUEL 50 MG PO (17:57)
[2024-09-24] MEDS: XARELTO 15 MG PO (17:57)
[2024-09-24] MEDS: LIPITOR 40 MG PO (17:58)
[2024-09-24 18:51] LABS: Hepatitis C Antibody Negative (Negative)
--- NOTE | 2024-09-24 23:29 | PTCARENOTE ---
While attempting to get vital signs at 2300, pt would not allow this stating, 'Leave me alone, no.' Earlier this nurse attempted to get pt's B/P and she began to sit up in the bed and got very agitated. Once B/P cuff was removed, pt laid back down
and went to sleep. Will attempt to move pt into 418-2 when pt gets up to use the bathroom.
[2024-09-25 07:08] VITALS: BP 177/98
[2024-09-25] MEDS: EXELON PATCH 13.3 MG TRANSDERM (08:16)
[2024-09-25] MEDS: NAMENDA 10 MG PO ×2 (08:19→19:38)
[2024-09-25] MEDS: PROTONIX 20 MG PO (08:19)
[2024-09-25] MEDS: COREG 6.25 MG PO ×2 (08:19→19:39)
[2024-09-25] MEDS: SEROQUEL 25 MG PO (08:20)
--- NOTE | 2024-09-25 11:37 | CM ---
Addendum entered by Lynnette Dow 09/25/24 15:19:
Patient daughter requesting referral to [facility], placed in [facility].
Original Note:
CM reviewed chart, patient seen bedside asleep in bed, spoke with [facility] ([place]). Per SUDHAKAR, patient resides at [facility], has been increasingly belligerent and reports patient is unable to return to [facility] unless with 24 hr care.
SUDHAKAR reports they are having a meeting with [facility] early next week in regards to higher level of care. SUDHAKAR would be in agreement for SNF for patient if recommended. SUDHAKAR requesting paperwork completed by Hospitalist to sent to cousin who is a
[employer], patient has VA benefits and looking for assistance. CM will continue to follow for all discharge planning needs. TT to Hospitalist for OT orders.
Plan; family agreeable to SNF if needed, unable to return to [facility] unless 24 hr care, OT to eval patient
[2024-09-25] MEDS: UNASYN IV ×2 (12:08→17:15)
--- NOTE | 2024-09-25 13:53 | W.PN.HOSP.TC ---
Addendum entered and electronically signed by Otis Oh MD 09/28/24 13:51:
Change in MS secondary to toxic encephalopathy.
Hx of Afib - unable to characterize afib as rhythm is AV paced
Original Note:
Today's Communication/Plan
-
Start on unasyn
Follow UCX
DC planning
Assessment / Plan
Assessment / Plan
78-year-old with history of dementia likely of Alzheimer's type, atrial fibrillation on anticoagulation with Xarelto, hypertension, hyperlipidemia, GERD who presents to the emergency department after 1 week of changes in mental status. This is
typified by more aggressive behavior otherwise somnolence and belligerence. The UA shows WBCs and bacteria but no nitrites or leukocyte esterase and she has no urinary symptoms otherwise. She has no other signs of an acute infection. She has SENG
with mild hypokalemia and hyponatremia. Suspect dehydration due to low p.o. intake but likely not the etiology of decline. Patient is generally suspected to decline progressively over time but appears to have had a steep decline lately.
PLAN:
Altered mental status
More decline than her baseline dementia status
Patient noted to be in SENG and there is a concern about possible UTI with pyuria.
No acute GI losses evident. No obvious external bleeding. Tolerating oral diet.
Remains confused but no agitation needing medications so far.
CW reorientation and support
UTI
UCx showing Enterococcus and aerococcus - start on IV unasyn and follow sensitivities
SENG�mild SENG with prerenal azotemia appearing labs
- Normalized creatinine. Hold further IV fluids.
HTN - resume valsartan as BP is high now
Atrial fibrillation
-Continue Xarelto
- Continue Coreg
DVT prophylaxis�on Xarelto
CODE STATUS�full code
CW PT and OT
DW daughter
DC in am if stable and UCX data is back
Anticipated Discharge: Within 24 hours
Subjective/Interval History
-
Date of Service: September 25, 2024
Remains confused but no agitation .
Not back at baseline per family.
Voicing no specific complaints.
She is alert and oriented to place and person today her recall was 0 out of 3 today. She doesnt know why she is in hospital.
Objective Data
-
Vital Signs:
Vital Signs
Temp Pulse Resp BP Pulse Ox
98 F 72 20 177/98 96
09/25/24 07:08 09/25/24 08:19 09/25/24 07:08 09/25/24 08:19 09/25/24 07:08
I&O
09/24/24 09/25/24 09/26/24
06:59 06:59 06:59
Intake Total 900 / 900 120 / 120
Balance 900 / 900 120 / 120
Review of Systems
-
Unable to obtain full review of systems at this time due to: Dementia
Physical Exam
-
General: Comfortable
Respiratory: Clear to Auscultation (anteriorly) and Non Labored Respirations; Negative Accessory Resp Muscle Use
Cardiac: Regular Rhythm and S1/S2; Negative Tachycardic
GI: Soft
Neuro: Awake, Alert, Oriented and No Motor Deficits
Psych: Calm and Confused; Negative Agitated
Data Reviewed
-
Labs: Labs Reviewed by me
[2024-09-25 14:23] LABS: Syphilis/T. pallidum Ab Reflex Negative (Negative)
[2024-09-25 15:02] VITALS: BP 196/96
--- NOTE | 2024-09-25 15:11 | PN.CDI ---
CDI
- -
CDI:
Physician Documentation Request
Admit Date: 09/24/24 15:11
Dear Doctor,
Please review the following and provide your response in the progress notes.
Clinical Indicators:
Pt admitted for altered mental status, SENG, and UTI.
Pt with History of Afib-
'Atrial fibrillation
-Continue Xarelto
- Continue Coreg'
If possible, please provide further specificity regarding atrial fibrillation, such as:
Paroxysmal atrial fibrillation - terminates spontaneously or with intervention within 7 days of onset
Persistent atrial fibrillation - episodes of continuous AF that last more than 7 days and do not self-terminate
Permanent atrial fibrillation - when a decision has been made to accept the presence of AF and there is no further attempt to restore or maintain sinus rhythm
Other - please specify
Unable to further specify
Use of terms such as suspected, likely, concern for, or probable (associated with a specific diagnosis that is being evaluated, monitored, or treated as if it exists) are acceptable and can be coded in the inpatient setting, when documented at the
time of discharge.
Thank you,
Dinah Palomino RN, BSN
CDI Specialist
[place] [facility]
Please use your independent medical judgment in providing your response.
[2024-09-25 15:13] VITALS: BP 160/87
--- NOTE | 2024-09-25 15:16 | PN.CDI ---
CDI
- -
CDI:
Physician Documentation Request
Admit Date: 09/24/24 15:11
Dear Doctor,
Please review the following and provide your response in the progress notes.
Clinical Indicators:
Pt admitted for altered mental status, SENG, and UTI.
09/24 Progress Note: ' Altered mental status...
More decline than her baseline dementia status....
Patient is generally suspected to decline progressively over time but appears to have had a steep decline lately...
UTI
UCx showing Enterococcus and aerococcus - start on IV unasyn and follow sensitivities
SENG�mild SENG with prerenal azotemia appearing labs'
Based on the above, could you clarify in the Progress Notes and Discharge Summary which, if any of the following, is the most likely etiology of the confusion/altered mental status.
Encephalopathy - Please indicate type, such as metabolic, toxic, etc. due to a specific condition such as UTI, CVA, hyponatremia etc.
Dementia only
Other
Use of terms such as suspected, likely, concern for, or probable (associated with a specific diagnosis that is being evaluated, monitored, or treated as if it exists) are acceptable and can be coded in the inpatient setting, when documented at the
time of discharge.
Thank you,
Dinah Palomino RN, BSN
CDI Specialist
[place] [facility]
Please use your independent medical judgment in providing your response.
[2024-09-25] MEDS: DIOVAN 80 MG PO (15:24)
[2024-09-25] MEDS: SEROQUEL 50 MG PO (17:14)
[2024-09-25] MEDS: XARELTO 15 MG PO (17:15)
[2024-09-25] MEDS: LIPITOR 40 MG PO (17:15)
[2024-09-25 23:15] VITALS: BP 140/69
[2024-09-26] MEDS: UNASYN IV ×5 (00:11→23:03)
[2024-09-26 07:15] VITALS: BP 170/93
[2024-09-26] MEDS: EXELON PATCH 13.3 MG TRANSDERM (08:11)
[2024-09-26] MEDS: DIOVAN 80 MG PO (08:15)
[2024-09-26] MEDS: COREG 6.25 MG PO ×2 (08:15→19:47)
[2024-09-26] MEDS: SEROQUEL 25 MG PO (08:16)
[2024-09-26] MEDS: NAMENDA 10 MG PO ×2 (08:16→19:47)
[2024-09-26] MEDS: PROTONIX 20 MG PO (08:16)
--- NOTE | 2024-09-26 10:28 | W.PN.HOSP.TC ---
Today's Communication/Plan
-
needs SNF and sensitivities of urine culture
Assessment / Plan
Assessment / Plan
pt is a 78 year old female
Altered mental status--More decline than her baseline dementia status at admission--found to have Enterococcus and aerococcus UTI and SENG (resolved)--likely cause--cannot return to [facility]--cont IV unasyn--narrow as able
SENG�mild SENG with prerenal azotemia appearing labs- Normalized creatinine
Essential HTN - resume valsartan as BP is high now
paroxysmal Atrial fibrillation-Continue Xarelto- Continue Coreg
DVT proph�on Xarelto
CODE STATUS�full code
Anticipated Discharge: Within 24 hours
Subjective/Interval History
-
Date of Service: September 26, 2024
pt without c/o--pleasantly confused
Objective Data
-
Vital Signs:
max temp for 24 hours
09/26/24
07:15
Temp 97.8 F
Vital Signs
Temp Pulse Resp BP Pulse Ox
97.8 F 74 20 170/93 96
09/26/24 07:15 09/26/24 07:15 09/26/24 07:15 09/26/24 07:15 09/26/24 07:15
I&O
09/25/24 09/26/24 09/27/24
06:59 06:59 06:59
Intake Total 120 / 120 780 / 780
Balance 120 / 120 780 / 780
Review of Systems
-
Unable to obtain full review of systems at this time due to: Dementia
All other systems: Reviewed and negative
Physical Exam
-
General: Well Developed, Well Nourished and No Apparent Distress
HEENT: Normocephalic and Atraumatic
Respiratory: Clear to Auscultation; Negative Wheezes or Crackles
Cardiac: Regular Rhythm and S1/S2; Negative Murmur
GI: Soft, Nontender, Nondistended and Normal Bowel Sounds
Musculoskeletal: No Clubbing and No Cyanosis; Negative No Edema (left arm swollen (charu wraps in place))
Neuro: Awake
Psych: Confused and Apparent Dementia
[2024-09-26 15:23] VITALS: BP 158/77
[2024-09-26] MEDS: SEROQUEL 50 MG PO (17:31)
[2024-09-26] MEDS: XARELTO 15 MG PO (17:31)
[2024-09-26] MEDS: LIPITOR 40 MG PO (17:31)
[2024-09-26 23:00] VITALS: BP 125/60
[2024-09-27] MEDS: UNASYN IV ×4 (05:58→23:55)
[2024-09-27 06:49] LABS: Hematocrit 36.2 % (37.0-47.0); Hemoglobin 12.2 g/dL (12.0-16.0); Mean Corp Hgb Conc. 33.7 g/dL (33.0-37.0); Mean Corpuscular Volume 85.4 fL (81.0-99.0); Platelet Count 237 10^3/uL (130-400); Red Cell Dist. Width 12.3 % (11.5-14.5)
[2024-09-27 07:00] VITALS: BP 142/62
[2024-09-27 07:20] LABS: Blood Urea Nitrogen 10 mg/dl (7-17); Calcium 8.6 mg/dl (8.4-10.2); Carbon Dioxide 27 mmol/L (22-30); Chloride 111 mmol/L (98-107); Estimated Creatinine Clearance 46 ml/min; Glucose 93 mg/dl (70-99); Magnesium 1.7 mg/dl (1.6-2.3); Potassium 4.0 mmol/L (3.5-5.1); Sodium 143 mmol/L (135-145); eGFR > 60.00
[2024-09-27] MEDS: EXELON PATCH 13.3 MG TRANSDERM (09:13)
[2024-09-27] MEDS: SEROQUEL 25 MG PO (09:13)
[2024-09-27] MEDS: DIOVAN 80 MG PO (09:14)
[2024-09-27] MEDS: PROTONIX 20 MG PO (09:14)
[2024-09-27] MEDS: COREG 6.25 MG PO ×2 (09:14→19:49)
[2024-09-27] MEDS: NAMENDA 10 MG PO ×2 (09:14→19:49)
--- NOTE | 2024-09-27 12:10 | W.PN.HOSP.TC ---
Today's Communication/Plan
-
medically stable for d/c to SNF when bed available
Assessment / Plan
Assessment / Plan
pt is a 78 year old female
Altered mental status--More decline than her baseline dementia status at admission--found to have Enterococcus and aerococcus UTI and SENG (resolved)--likely cause--cannot return to [facility], waiting for bed at [facility]--cont IV unasyn (day 5)--narrow
as able at d/c to oral meds
SENG�mild SENG with prerenal azotemia appearing labs- Normalized creatinine--resolved
Essential HTN - resume valsartan as BP is high now
paroxysmal Atrial fibrillation-Continue Xarelto- Continue Coreg
DVT proph�on Xarelto
CODE STATUS�full code
Anticipated Discharge: Within 24 hours
Subjective/Interval History
-
Date of Service: September 27, 2024
pt without c/o--family at bedside feels pt markedly improved
Objective Data
-
Labs:
Laboratory Results
09/27/24
05:59
WBC 5.8
Hgb 12.2
Hct 36.2 L
Plt Count 237
Sodium 143
Potassium 4.0
Chloride 111 H
Carbon Dioxide 27
BUN 10
Creatinine 0.8
Glucose 93
Calcium 8.6
Vital Signs:
max temp for 24 hours
09/26/24
23:00
Temp 98.0 F
Vital Signs
Temp Pulse Resp BP Pulse Ox
98.1 F 71 16 142/62 96
09/27/24 07:00 09/27/24 07:00 09/27/24 07:00 09/27/24 07:00 09/27/24 07:00
I&O
06/28/25 06/29/25 06/30/25
06:59 06:59 06:59
Intake Total 780 / 780 850 / 850
Balance 780 / 780 850 / 850
Review of Systems
-
All other systems: Reviewed and negative
Physical Exam
-
General: Well Developed, Well Nourished and No Apparent Distress
HEENT: Normocephalic and Atraumatic
Respiratory: Clear to Auscultation; Negative Wheezes or Rhonchi
Cardiac: Regular Rhythm and S1/S2; Negative Murmur
GI: Soft, Nontender, Nondistended and Normal Bowel Sounds
Musculoskeletal: No Clubbing, No Cyanosis and No Edema
Psych: Apparent Dementia
[2024-09-27 15:00] VITALS: BP 139/78
[2024-09-27] MEDS: SEROQUEL 50 MG PO (16:49)
[2024-09-27] MEDS: LIPITOR 40 MG PO (16:51)
[2024-09-27] MEDS: XARELTO 15 MG PO (16:53)
[2024-09-27 19:46] VITALS: BP 126/58
[2024-09-27 23:17] VITALS: BP 131/60
[2024-09-28] MEDS: UNASYN IV (05:47)
[2024-09-28 07:45] VITALS: BP 163/65
[2024-09-28] MEDS: DIOVAN 80 MG PO (08:34)
[2024-09-28] MEDS: EXELON PATCH 13.3 MG TRANSDERM (08:34)
[2024-09-28] MEDS: COREG 6.25 MG PO ×2 (08:34→20:34)
[2024-09-28] MEDS: NAMENDA 10 MG PO ×2 (08:34→20:33)
[2024-09-28] MEDS: LEVAQUIN 500 MG PO (08:34)
[2024-09-28] MEDS: PROTONIX 20 MG PO (08:41)
[2024-09-28] MEDS: SEROQUEL 25 MG PO (08:41)
--- NOTE | 2024-09-28 14:30 | CM ---
Addendum entered by Maggy Gardner 09/28/24 16:25:
Daughter called back; requesting referrals to [facility]. Daughter to call to [facility] and ask about bed availability. CM updated physician per daughter request for a phone call. CM will continue to follow for discharge planning needs.
Plan; SNF; CM will send additional referrals as needed.
Original Note:
Patient seen at bedside with physicians on . CM spoke with [facility] and liaison indicated that they did not have any beds for patient at this time. CM called and left a message for patient daughter requesting SNF options.. CM will continue to
follow for discharge planning needs.
Plan; SNF; pending daughter response.
[2024-09-28 15:40] VITALS: BP 155/82
--- NOTE | 2024-09-28 16:38 | W.PN.HOSP.TC ---
Addendum entered and electronically signed by Eliane Berman MD 09/28/24 17:28:
I saw and evaluated the patient independently. I reviewed the resident�s note and agree with findings and plan as documented by Dr. Lemus.
GENERAL: well developed, well nourished, female in no apparent distress with dementia
HEENT: NC/AT
HEART: regular rate and rhythm, +S1, +S2
LUNGS : clear to auscultation bilaterally
ABDOM: soft, nontender, nondistended, + bowel sounds
EXT: no cyanosis, clubbing, or edema
NEUROLOGIC: apparent dementia
Altered mental status--More decline than her baseline dementia status at admission--found to have Enterococcus and Aerococcus UTI and SENG (resolved)--likely cause--cannot return to [facility], waiting for bed at SNF--cont IV unasyn--narrow to
levaquin with pharmacy consultation
SENG�mild SENG with prerenal azotemia appearing labs- Normalized creatinine--resolved
Essential HTN - resume valsartan as BP is high now
paroxysmal Atrial fibrillation-Continue Xarelto- Continue Coreg
DVT proph�on Xarelto
CODE STATUS�full code
Original Note:
Today's Communication/Plan
-
medically stable, awaiting SNF
restarted BP med
Assessment / Plan
Assessment / Plan
Ms Fuller is a 78 year old female with a phm of dementia, afib on anticoagulation, Gerd, HLD, HTN, coming in for acute changes in mental status. Family states that she previously does occasional short episodes of mental status changes but this
episode was longer, 1week, and worse than usual. She has not been eating or drinking well but has been compliant with her medications and there have been slight increases in Seroquel for agitation. She has continued to take her Namenda. Family
reports no sick contacts. She has not had any fevers or chills. She has not had any falls or focal deficits.
#Altered mental status
#UTI
significantly declined to her baseline dementia status per family
AMS possibly due to UTI
Urine culture positive for Enterococcus and aerococcus
Started on Unasyn (09/25) switched to Levaquin (09/28) (day 4) end 10/01
#SENG resolved
likely due poor PO intake
creatinine of 1.4 up from 0.8 at baseline
Cr back to 0.8 (09/27)
#HTN
resume valsartan 80mg QD
#paroxysmal Atrial fibrillation-
Continue Xarelto 15mg QPM
Continue Coreg 6.25
DVT PPx
Xarelto
Dispo: cannot return to [facility], waiting for bed at [facility]
CODE STATUS�full code
Anticipated Discharge: 24 - 48 hours
Subjective/Interval History
-
Petient was seen at bedside. There were NAEO. She did not complain of any pain or other issues. Per nursing she is still confused but significantly improved.
Date of Service: September 28, 2024
Objective Data
-
Vital Signs:
Vital Signs
Temp Pulse Resp BP Pulse Ox
97.8 F 73 16 155/82 94
09/28/24 15:40 09/28/24 15:40 09/28/24 15:40 09/28/24 15:40 09/28/24 15:40
I&O
09/27/24 09/28/24 09/29/24
06:59 06:59 06:59
Intake Total 850 / 850 660 / 660
Balance 850 / 850 660 / 660
Review of Systems
-
Unable to obtain full review of systems at this time due to: Dementia
History Source: Patient
Constitutional: Reports No Symptoms; Denies Fever
EENT: Reports No Symptoms Reported
Respiratory: Reports No Symptoms; Denies Cough or Trouble Breathing
Cardiac: Reports No Symptoms; Denies Chest Pain or Palpitations
Abdomen/GI: Reports No Symptoms; Denies Abdominal Pain, Nausea or Vomiting
Neuro: Reports No Symptoms; Denies Dizzy
Physical Exam
-
General: Well Developed, Well Nourished and No Apparent Distress
HEENT: Normocephalic and Atraumatic
Respiratory: Clear to Auscultation; Negative Wheezes or Rales
Cardiac: Regular Rhythm and S1/S2; Negative Murmur
GI: Soft, Nontender and Nondistended
Musculoskeletal: No Clubbing and No Edema
Skin: Warm and Dry; Negative Rash
Neuro: Awake, Alert and Oriented; Negative AO x 3 (AO to person only)
[2024-09-28] MEDS: LIPITOR 40 MG PO (17:13)
[2024-09-28] MEDS: SEROQUEL 50 MG PO (17:13)
[2024-09-28] MEDS: XARELTO 15 MG PO (17:13)
[2024-09-28 23:14] VITALS: BP 148/77
[2024-09-29 07:17] VITALS: BP 187/86
[2024-09-29] MEDS: LEVAQUIN 250 MG PO (08:35)
[2024-09-29] MEDS: NAMENDA 10 MG PO ×2 (08:35→21:23)
[2024-09-29] MEDS: DIOVAN 80 MG PO (08:35)
[2024-09-29] MEDS: COREG 6.25 MG PO ×2 (08:35→21:23)
[2024-09-29] MEDS: EXELON PATCH 13.3 MG TRANSDERM (08:35)
[2024-09-29] MEDS: PROTONIX 20 MG PO (08:35)
[2024-09-29] MEDS: SEROQUEL 25 MG PO (08:35)
[2024-09-29 13:34] VITALS: BMI 23.6
--- NOTE | 2024-09-29 14:52 | CM ---
Addendum entered by Maggy Gardner 09/29/24 15:47:
Daughter made aware of possible bed at [facility], additional notes sent and daughter asking to tour facility. CM updated Liaison and await response.
Original Note:
Patient seen at bedside with physicians. CM called to patient daughter and updated message regarding referrals left. Patient daughter requested referral to [facility] and [facility] await response from SNF. CM will continue to follow for discharge planning
needs.
Plan; SNF
--- NOTE | 2024-09-29 15:20 | W.PN.HOSP.TC ---
Addendum entered and electronically signed by Eliane Berman MD 09/29/24 17:01:
I saw and evaluated the patient independently. I reviewed the resident�s note and agree with findings and plan as documented by Dr. Lemus.
GENERAL: well developed, well nourished, female in no apparent distress with dementia
HEENT: NC/AT
HEART: regular rate and rhythm, +S1, +S2
LUNGS : clear to auscultation bilaterally
ABDOM: soft, nontender, nondistended, + bowel sounds
EXT: no cyanosis, clubbing, or edema
NEUROLOGIC: apparent dementia
Altered mental status--due to infection and SENG--found to have Enterococcus and Aerococcus UTI and SENG (resolved)--cannot return to [facility], waiting for bed at [facility]--cont IV unasyn--narrow to levaquin with pharmacy consultation for total of 7
days of antibiotics--pt does not need MRI (was cancelled by prior physician) as pt has dramatically improved (as told to me by pt son who was at bedside on Saturday09/27/24)--she has a nonfocal neurologic exam and MRI is not indicated--pt has been
medically stable since 09/26 and waiting for SNF bed
SENG�mild SENG with prerenal azotemia appearing labs- Normalized creatinine--resolved
Essential HTN - resume valsartan as BP is high now
paroxysmal Atrial fibrillation-Continue Xarelto- Continue Coreg
DVT proph�on Xarelto
CODE STATUS�full code
Original Note:
Today's Communication/Plan
-
medically stable, awaiting SNF bed
Assessment / Plan
Assessment / Plan
Ms Fuller is a 78 year old female with a phm of dementia, afib on anticoagulation, Gerd, HLD, HTN, coming in for acute changes in mental status. Family states that she previously does occasional short episodes of mental status changes but this
episode was longer, 1week, and worse than usual. She has not been eating or drinking well but has been compliant with her medications and there have been slight increases in Seroquel for agitation. She has continued to take her Namenda. Family
reports no sick contacts. She has not had any fevers or chills. She has not had any falls or focal deficits.
#Altered mental status
#UTI
significantly declined to her baseline dementia status per family
AMS possibly due to UTI
Urine culture positive for Enterococcus and aerococcus
Started on Unasyn (09/25) switched to Levaquin (09/28) (day 4) end 10/01
#SENG resolved
likely due poor PO intake
creatinine of 1.4 up from 0.8 at baseline
Cr back to 0.8 (09/27)
#HTN
resume valsartan 80mg QD
#paroxysmal Atrial fibrillation-
Continue Xarelto 15mg QPM
Continue Coreg 6.25
DVT PPx
Xarelto
Dispo: cannot return to [facility], waiting for bed at [facility]
CODE STATUS
full code
Anticipated Discharge: Within 24 hours
Subjective/Interval History
-
Patient was seen at bedside. It was her 79th birthday. There were NAEO. She did not complain of any pain or other issues. She is still confused but she is calm not agitated with no behavioral issues. She did not require any PRNs overnight and is
medically stable. We reached out to the daughter in law Sarahy four times without answer. Daughter wanted to discuss Brain MRI, which is not indicated in this patient due to resolution of AMS after treatment for UTI and lack of focal neurological
deficits.
Date of Service: September 29, 2024
Objective Data
-
Vital Signs:
Vital Signs
Temp Pulse Resp BP Pulse Ox
97.8 F 71 18 187/86 95
09/29/24 07:17 09/29/24 07:17 09/29/24 07:17 09/29/24 07:17 09/29/24 07:17
I&O
09/28/24 09/29/24 09/30/24
06:59 06:59 06:59
Intake Total 660 / 660 240 / 240
Balance 660 / 660 240 / 240
Review of Systems
-
Unable to obtain full review of systems at this time due to: Dementia
History Source: Patient
Constitutional: Reports No Symptoms; Denies Fever or Fatigue
EENT: Reports No Symptoms Reported
Respiratory: Reports No Symptoms; Denies Cough or Trouble Breathing
Cardiac: Reports No Symptoms; Denies Chest Pain or Palpitations
Abdomen/GI: Reports No Symptoms; Denies Abdominal Pain, Nausea or Vomiting
Genitourinary: Reports No Symptoms
Neuro: Reports No Symptoms; Denies Dizzy or Headache
Physical Exam
-
General: Well Developed, Well Nourished, No Apparent Distress and Comfortable
HEENT: Normocephalic and Atraumatic
Respiratory: Clear to Auscultation, Wheezes, Rales and Crackles
Cardiac: Regular Rhythm and S1/S2; Negative Murmur or Rub
GI: Soft, Nontender, Nondistended and Normal Bowel Sounds
Musculoskeletal: No Clubbing, No Cyanosis and No Edema
Skin: Warm and Dry
Neuro: Awake and Alert; Negative Oriented
[2024-09-29 15:31] VITALS: BP 160/82
--- NOTE | 2024-09-29 15:35 | PTCARENOTE ---
09/29- Patient is impulsive but redirectable. She is pleasant, cooperative. AAOX3, steady strong gait. Independent mobility.
[2024-09-29] MEDS: LIPITOR 40 MG PO (17:14)
[2024-09-29] MEDS: XARELTO 15 MG PO (17:14)
[2024-09-29] MEDS: SEROQUEL 50 MG PO (17:14)
[2024-09-29 23:55] VITALS: BP 116/53
[2024-09-30 07:17] VITALS: BP 132/79
[2024-09-30] MEDS: DIOVAN 80 MG PO (08:59)
[2024-09-30] MEDS: SEROQUEL 25 MG PO (09:00)
[2024-09-30] MEDS: LEVAQUIN 250 MG PO (09:00)
[2024-09-30] MEDS: NAMENDA 10 MG PO ×2 (09:00→20:05)
[2024-09-30] MEDS: EXELON PATCH 13.3 MG TRANSDERM (09:00)
[2024-09-30] MEDS: COREG 6.25 MG PO ×2 (09:00→20:04)
[2024-09-30] MEDS: PROTONIX 20 MG PO (09:00)
--- NOTE | 2024-09-30 14:52 | CM ---
Addendum entered by Maggy Gardner 09/30/24 16:47:
ambulance for 20;45, facility and family aware and in agreement. nursing also notified.
Addendum entered by Mgagy Gardner 09/30/24 16:18:
Patient accepted to [facility] for transfer today. Please call report to [phone] and fax to [phone]. ambulance transportation forms faxed to form. CM will continue to follow for discharge planning needs.
Plan; transfer to [facility]; pending ambulance transportation.
Original Note:
Patient accepted to both [facility] and [facility], patient daughter in law aware and to tour both facilities. Discharge order in and CM reviewed IMM with daughter in law. Copy placed in room. Patient daughter requested IMM be emailed to her at
[email or web address]. Patient needing transport via ambulance due to confusion and Patient daughter in law to call CM back with decision. CM will continue to follow for discharge planning needs.
Plan; SNF today
[2024-09-30 15:35] VITALS: BP 139/71
--- NOTE | 2024-09-30 15:42 | W.PN.HOSP.TC ---
Addendum entered and electronically signed by Eliane Berman MD 09/30/24 17:24:
I saw and evaluated the patient independently. I reviewed the resident�s note and agree with findings and plan as documented by Dr. Lemus.
GENERAL: well developed, well nourished, female in no apparent distress with dementia
HEENT: NC/AT
HEART: regular rate and rhythm, +S1, +S2
LUNGS : clear to auscultation bilaterally
ABDOM: soft, nontender, nondistended, + bowel sounds
EXT: no cyanosis, clubbing, or edema
NEUROLOGIC: apparent dementia
Altered mental status--due to infection and SENG--found to have Enterococcus and Aerococcus UTI and SENG (resolved)--cannot return to [facility], waiting for bed at [facility]--cont IV unasyn--narrow to levaquin with pharmacy consultation for total of 7
days of antibiotics--pt does not need MRI (was cancelled by prior physician) as pt has dramatically improved (as told to me by pt son who was at bedside on Saturday09/27/24)--she has a nonfocal neurologic exam and MRI is not indicated--pt has been
medically stable since 09/26 and waiting for [facility] bed--Dr. Lemus updated [id number] via phone
SENG�mild SENG with prerenal azotemia appearing labs- Normalized creatinine--resolved
Essential HTN - resume valsartan as BP is high now
paroxysmal Atrial fibrillation-Continue Xarelto- Continue Coreg
DVT proph�on Xarelto
CODE STATUS�full code
OK for D/C
Original Note:
Today's Communication/Plan
-
pt discharged today
medically stable for discharge
Assessment / Plan
Assessment / Plan
Ms Fuller is a 78 year old female with a phm of dementia, afib on anticoagulation, Gerd, HLD, HTN, coming in for acute changes in mental status. Family states that she previously does occasional short episodes of mental status changes but this
episode was longer, 1week, and worse than usual. She has not been eating or drinking well but has been compliant with her medications and there have been slight increases in Seroquel for agitation. She has continued to take her Namenda. Family
reports no sick contacts. She has not had any fevers or chills. She has not had any falls or focal deficits.
#Altered mental status
#UTI
significantly declined to her baseline dementia status per family
AMS possibly due to UTI
Urine culture positive for Enterococcus and aerococcus
Started on Unasyn (09/25) switched to Levaquin (09/28) (day 4) end 10/01
#SENG resolved
likely due poor PO intake
creatinine of 1.4 up from 0.8 at baseline
Cr back to 0.8 (09/27)
#HTN
resume valsartan 80mg QD
#paroxysmal Atrial fibrillation-
Continue Xarelto 15mg QPM
Continue Coreg 6.25
DVT PPx
Xarelto
Dispo: waiting for bed at [facility]
CODE STATUS
full code
Anticipated Discharge: Today
Subjective/Interval History
-
Patient was seen at bedside. There were NAEO. She did not complain of any pain or other issues. She is still confused but she is calm not agitated with no behavioral issues. She is medically stable. We reached the daughter in law and answered her
questions about the MRI and pacemaker. She will reach out ot the EP and cardiologists that placed the pacemaker device to find out about pacemaker compactability. Answered questions about switching antibiotics to provide appropriate therapy.
Daughter verbalized understanding Date of Service: September 30, 2024
Objective Data
-
Vital Signs:
Vital Signs
Temp Pulse Resp BP Pulse Ox
97.4 F 73 18 132/79 98
09/30/24 07:17 09/30/24 09:00 09/30/24 07:17 09/30/24 09:00 09/30/24 07:17
I&O
09/29/24 09/30/24 10/01/24
06:59 06:59 06:59
Intake Total 240 / 240 1200 / 1200
Balance 240 / 240 1200 / 1200
Review of Systems
-
Unable to obtain full review of systems at this time due to: Dementia
History Source: Patient
All other systems: Reviewed and negative
Constitutional: Reports No Symptoms; Denies Fever or Fatigue
EENT: Reports No Symptoms Reported; Denies Sore Throat or Runny Nose
Respiratory: Reports No Symptoms; Denies Cough or Trouble Breathing
Cardiac: Reports No Symptoms; Denies Chest Pain or Palpitations
Abdomen/GI: Reports No Symptoms; Denies Abdominal Pain, Nausea or Vomiting
Genitourinary: Reports No Symptoms; Denies Dysuria
Neuro: Reports No Symptoms
Physical Exam
-
General: Well Developed, Well Nourished, No Apparent Distress and Comfortable
HEENT: Normocephalic and Atraumatic
Respiratory: Clear to Auscultation; Negative Wheezes, Rales or Crackles
Cardiac: Regular Rhythm and S1/S2; Negative Murmur or Rub
GI: Soft, Nontender, Nondistended and Normal Bowel Sounds; Negative Tender
Musculoskeletal: No Clubbing, No Cyanosis and No Edema
Skin: Warm and Dry
Neuro: Awake and Alert
Psych: Calm
--- NOTE | 2024-09-30 17:28 | W.DCSUMMARY ---
Addendum entered and electronically signed by Eliane Berman MD 09/30/24 18:58:
Read, reviewed, and agree. See same day progress note for additional details. Time spent coordinating care, DC planning, review of DC plan of care with resident, transition of care, review of records in EMR, med rec, consults, notes, d/w
consultants, nursing, family, and CM = 33 minutes
Original Note:
Discharge Summary
Discharge Data
Date of Admission: 09/24/24
Date of Discharge: 09/30/24
-
Pending Results: No
Hospital Course
Discharging Physician : Dr. Berman, Dr. Lemus
Disposition : SNF
Primary care physician : Gisel Larose DO
Principal Discharge diagnosis : Altered Mental Status, UTI
Chronic Discharge diagnosis : hypertension, paroxysmal atrial fibrillation, hyperlipidemia, gerd
Hospital Course :
This is a 78-year-old who has past medical history significant for dementia, atrial fibrillation on anticoagulation, hyperlipidemia, GERD and hypertension who presents to the emergency department with worsening declining mental status. Family
members reported that she diagnosed with dementia likely Alzheimer's for several months now. They noticed today that she started having a significant decline about 1 month ago when her behavior started to change. She often returns back to her
baseline. However for the last 1 week she has remained in an altered state compared to baseline. Family reported no sick contacts. She has not been having any vomiting. They did note intermittent loose stools but not frequent diarrhea. She has
not had any fevers or chills. She has not had any falls. She has been no focal deficits. In the ED the patient was afebrile, ECG showed paced rhythm. CBC was unremarkable. Electrolytes notable for SENG with a creatinine of 1.4 up from 0.8 at
baseline. RPP was negative. She had mild hypokalemia to 3.4 and a sodium of 146. UA showed WBCs and moderate bacteria but no leukocyte esterase or nitrite. Ct head showed no acute abnormalities. In the hospital antibiotics were started urine
culture grew two bugs. After culture ans sensitivity, the antibiotics were changed to cover the organisms. During her stay her mentation improved and returned to baseline per family. Her Cr improved and returned to baseline. Her electrolytes were
repleted. She was medically table for discharge to SNF.
Important imaging findings :
CT Head 09/23
IMPRESSION: No acute intracranial abnormality.
Procedure findings :
09/23
Procedure/Result
Influenza Types A & B (JEANIE) - Final
���Negative for Influenza A & B, NAAT
���Negative results must be combined with clinical observations
���and patient history.
���Nucleic Acid Amplification test (NAAT)performed on the
���[employer] platform.
09/23
Procedure/Result
Urine Culture - Final
Enterococcus faecalis
Aerococcus Species
Discharge Plan
-
Patient Disposition: Assisted/SNF
Discharge Diagnosis/Procedures: Altered mental status due to Enterococcus and Aerococcus urinary tract infection along with acute kidney injury, essential hypertension, paroxysmal atrial fibrillation
Condition: Good
Diet: As tolerated and Regular
Activity: As tolerated
Driving Restrictions: No driving
Bathing Restrictions: None
Referrals:
Gisel Larose DO [Family Provider, General] - in less than 1 week
Prescriptions:
New
levofloxacin 250 mg tablet
250 mg PO ONCE Qty: 1 0RF
Continued
valsartan 80 mg tablet
80 mg PO DAILY
quetiapine [Seroquel] 25 mg Tablet
25 mg PO DAILY
carvedilol [Coreg] 6.25 mg Tablet
6.25 mg PO BID
atorvastatin [Lipitor] 10 mg Tablet
10 mg PO QPM
pantoprazole [Protonix] 20 mg Tablet,Delayed Release (Dr/Ec)
20 mg PO DAILY
memantine 10 mg Tablet
10 mg PO BID
quetiapine [Seroquel] 50 mg Tablet
50 mg PO HS
Xarelto 15 mg Tablet
15 mg PO QPM
rivastigmine 13.3 mg/24 hour Patch 24 Hour
13.3 mg TRANSDERMAL DAILY
Discharge Orders:
Discharge Patient (As Directed); Ordered 09/30/24
Ordered By: Coby Lemus
Discharge Date and Time
Print Language: ARMENIAN
[2024-09-30] MEDS: XARELTO 15 MG PO (17:34)
[2024-09-30] MEDS: LIPITOR 40 MG PO (17:34)
[2024-09-30] MEDS: SEROQUEL 50 MG PO (17:34)
[2024-09-30 19:59] VITALS: BP 130/56
--- NOTE | 2024-09-30 22:10 | PTCARENOTE ---
2120 pt discharged via ambulance. pt ambulated with assistance to stretcher. no belongings noted in room.
== END 2024-09-30 21:21 | DRG 682 ==
LOC: 4 WEST ACU 15:11
PROVIDERS: Emergency Medicine; Internal Medicine; Student in an Organized Health Care Education/Training Program; ADMITTING PHYSICIAN Internal Medicine; ATTENDING PHYSICIAN Internal Medicine; EMERGENCY PHYSICIAN Student in an Organized Health Care Education/Training Program; FAMILY PHYSICIAN Hospitalist
DX: N17.9 Acute kidney failure, unspecified (principal); G92.9 Unspecified toxic encephalopathy; E87.1 Hypo-osmolality and hyponatremia; N39.0 Urinary tract infection, site not specified; I48.0 Paroxysmal atrial fibrillation; E78.00 Pure hypercholesterolemia, unspecified; K21.9 Gastro-esophageal reflux disease without esophagitis; I10 Essential (primary) hypertension; Z79.01 Long term (current) use of anticoagulants; E87.6 Hypokalemia; F02.80 Dementia in other diseases classified elsewhere, unspecified severity, without behavioral disturbance, psychotic disturbance, mood disturbance, and anxiety; G30.9 Alzheimer's disease, unspecified; Z95.0 Presence of cardiac pacemaker; Z11.52 Encounter for screening for COVID-19
CPT/HCPCS: 51701; 70450; 80048; 80053; 81003; 81015; 82140; 82607; 83735; 84443; 85025; 85027; 86780; 86803; 87077; 87086; 87186; 87502; 87811; 93005; 96360; 96361; 97166; 97535; 99285

== ENCOUNTER → 2024-11-05 10:47 | Outpatient (REF) | payer MEDICARE, SELFPAY ==
[2024-11-05 11:28] LABS: Hematocrit 40.9 % (37.0-47.0); Hemoglobin 12.7 g/dL (12.0-16.0); Mean Corp Hgb Conc. 31.1 g/dL (33.0-37.0); Mean Corpuscular Volume 90.7 fL (81.0-99.0); Platelet Count 238 10^3/uL (130-400); Red Cell Dist. Width 13.1 % (11.5-14.5)
[2024-11-05 11:37] LABS: ALT (SGPT) 11 U/L (0-35); AST (SGOT) 22 U/L (14-36); Albumin 4.0 g/dl (3.5-5.0); Alkaline Phosphatase 71 U/L (38-126); Blood Urea Nitrogen 25 mg/dl (7-17); Calcium 8.9 mg/dl (8.4-10.2); Carbon Dioxide 25 mmol/L (22-30); Chloride 109 mmol/L (98-107); Glucose 134 mg/dl (70-99); Potassium 3.8 mmol/L (3.5-5.1); Sodium 142 mmol/L (135-145); Total Protein 6.6 g/dl (6.3-8.2); eGFR > 60.00
== END ==
LOC: OLABMERCHI 10:47
PROVIDERS: ATTENDING PHYSICIAN Hospitalist
DX: E87.6 Hypokalemia (principal)
CPT/HCPCS: 36415; 80053; 85027

== ENCOUNTER 2024-11-08 12:01 | Emergency (ER) | payer MEDICARE, SELFPAY ==
[2024-11-08 12:03] VITALS: BP 139/69
[2024-11-08 12:34] LABS: Hematocrit 38.6 % (37.0-47.0); Hemoglobin 12.7 g/dL (12.0-16.0); Mean Corp Hgb Conc. 32.9 g/dL (33.0-37.0); Mean Corpuscular Volume 87.5 fL (81.0-99.0); Nucleated Red Blood Cells % 0 %; Platelet Count 285 10^3/uL (130-400); Red Cell Dist. Width 12.5 % (11.5-14.5)
[2024-11-08 12:54] LABS: ALT (SGPT) 11 U/L (0-35); AST (SGOT) 18 U/L (14-36); Albumin 4.1 g/dl (3.5-5.0); Alkaline Phosphatase 59 U/L (38-126); Blood Urea Nitrogen 30 mg/dl (7-17); Calcium 9.1 mg/dl (8.4-10.2); Carbon Dioxide 25 mmol/L (22-30); Chloride 113 mmol/L (98-107); Glucose 108 mg/dl (70-99); Potassium 4.2 mmol/L (3.5-5.1); Sodium 145 mmol/L (135-145); Total Protein 6.6 g/dl (6.3-8.2); eGFR > 60.00
[2024-11-08 12:59] LABS: Troponin I < 0.012 ng/ml
[2024-11-08 13:22] VITALS: BP 129/68
[2024-11-08 14:00] VITALS: BP 120/81
[2024-11-08 15:00] VITALS: BP 131/59
--- NOTE | 2024-11-08 15:37 | ED.GENMED ---
History of Present Illness
General
Chief Complaint: Fatigue
Source: patient
Exam Limitations: none
Time Seen by Provider: 11/08/24 13:57
Nursing documentation reviewed up to this point in time: agreed with
History of Present Illness
History of Present Illness:
79-year-old female with past medical history of dementia, hypertension, hyperlipidemia, atrial fibrillation, pacemaker/AICD who presents to the emergency department with son and [id number] for evaluation of cough and fatigue. Patient cannot
meaningfully participate in history due to her baseline significant dementia. [id number] and son are at bedside and provide most of history. She was admitted to this hospital for about a week in late August/early September for change in mental
status felt to be related to UTI. She was treated for this UTI and was ultimately discharged to rehab and stayed there for 3 weeks. She had been living at [facility] in an apartment prior to this hospitalization, was transferred to the memory
care section after this stay and rehab and has been in the memory care unit at [facility] for the past 2 weeks. Family reports that she has been more lethargic since returning to [facility] with minimal activity during the day. They note that
she has been dealing with a cough�apparently towards the end of her rehab stay she was diagnosed with pneumonia and was started on amoxicillin which she recently completed. Despite that cough has been persistent and so ultimately patient was sent
to the ER to be reassessed. Aside from above symptoms family reports somewhat decreased appetite�son says that he had to convince her to just go to dinner last night. No fevers or any other issues noted.
Past History
Past History
ED Past Medical History: Arrthythmia (Afib), GERD, HTN, Hypercholesterolemia and Other (Alzheimer's )
ED Past Surgical History: Cardiac (pacemaker)
Social History
Tobacco: Non-smoker
Alcohol: None
Living: assisted living
Review of Systems
Review of Systems
Unable to obtain full review of systems at this time due to: dementia
All Other Systems: Not applicable
Phy Exam
Physical Exam
Physical Exam:
General: Laying in bed resting comfortably, opens eyes to voice and responds to basic questions; no acute distress
Head: Normocephalic, atraumatic
Eyes: Conjunctiva normal, sclera anicteric
Throat: Airway intact, handling secretions
Neck: Trachea midline, no JVD
Lungs: Scattered expiratory wheezing most pronounced at the lung bases; no tachypnea, no hypoxia, no signs of respiratory distress
Heart: Regular rate and rhythm, no murmurs, gallops, or rubs appreciated
Abd: Soft, non distended, nontender
Neuro: Moving all extremities equally with no gross motor deficits, no gross cranial nerve deficits
Extremities: No edema in extremities, equal pulses in all extremities
Scores
Heart Failure Risk
Heart Failure Risk Score: Not Applicable
Heart Score for Chest Pain Patients
STEMI patient?: Not applicable
Withdrawal Assessment of Alcohol
Withdrawal Assessment Completed?: Not applicable
Sepsis
Sepsis Screening
Sepsis Assessment: Sepsis Ruled Out
Sepsis Screen
Sepsis Screen: Sepsis Ruled Out
Date: 11/08/24
Time: 15:52
Course
Orders/Labs/Results
Orders:
Orders
11/08/24 12:08
Electrocardiogram (*1) Urgent
Reason for Study: Other
Other Reason for Exam: Respiratory Distress
Cardiac Monitoring- Treatment ONCE
EKG- Treatment ONCE
CR Chest - 2 Views Urgent
Comment:
Reason For Exam: respiratory distress
11/08/24 12:25
Complete Blood Count/With Diff Urgent
Comprehensive Metabolic Panel Urgent
NT-proBNP Urgent
Troponin I Urgent
11/08/24 15:05
MethylPREDNISolone PF [Solu-Medrol Pf] 125 mg IV NOW STA
11/08/24 15:06
Interrogate Pacemaker- Treatment ONCE
Urinalysis Reflex To Culture Urgent
Date Specimen was Collected: 11/08/24
Time Specimen was Collected: 15:30
Abnormal Lab Results
11/08/24
12:25
MCHC 32.9 L g/dL
(33.0-37.0)
Chloride 113 H mmol/L
(98-107)
BUN 30 H mg/dl
(7-17)
Glucose 108 H mg/dl
(70-99)
11/08/24 12:25
11/08/24 12:25
Vital Signs
Initial and Last Documented VS:
Initial Vital Signs
Temp Pulse Resp BP Pulse Ox
37.0 C 76 18 139/69 95
11/08/24 12:03 11/08/24 12:03 11/08/24 12:03 11/08/24 12:03 11/08/24 12:03
Last Documented Vital Signs
Temp Pulse Resp BP Pulse Ox
37.0 C 70 15 129/68 96
11/08/24 12:03 11/08/24 13:30 11/08/24 13:30 11/08/24 13:22 11/08/24 15:38
MDM/Problems Addressed
Differential Diagnosis Includes:
Cough: COPD/bronchitis, pneumonia, CHF
Fatigue: COPD/bronchitis, pneumonia, CHF, UTI, anemia, dehydration, polypharmacy, dementia with delirium
MDM/Problems Addressed:
79-year-old female presents with fatigue/lethargy and persistent cough as described above. Vitals and exam as above. Labs were sent off including a CBC which showed no clinically significant abnormalities. CMP no clinically significant
abnormalities. Troponin undetectable, proBNP normal, chest x-ray with no acute disease, no signs of CHF. EKG shows sinus rhythm with no acute ischemia. Will check urinalysis. At this point suspect cough is related to COPD/bronchitis as she has
wheezing on exam in the absence of pneumonia or signs of heart failure. Reasonable to trial steroids. I had a long discussion with the family and I think her fatigue/lethargy is likely multifactorial�I do think that the environmental change of
going to [facility] at [facility] in concert with cough/illness likely contributing. At this point no clear indication for hospitalization I think she can reasonably be discharged with oral steroids to follow-up with PCP as an outpatient. Family
comfortable with this plan. Pending urinalysis plan for discharge�if UA positive for prescribe antibiotics as well.
Chronic conditions affecting care:
Dementia
*Radiology
Radiology exam reviewed: preliminary read by ED provider and radiology read reviewed
*Pulse Oximetry
SaO2: 96
Oxygen Mode of Delivery: Room air
Patient hypoxic: no (96%)
*EKG
Interpreted by ED Provider?: Yes
Heart Rate: 72
Rate: normal
Rhythm: av sequential
*Critical Care Note
Total Time (30-74mins, 75-104mins- exclusive of procedures): Not Applicable
Data Reviewed
Review of Other/Old Records Reveals: Labs and Records
Source: patient, records and family
Patient Management
Escalation/DeEscalation of care consider admission/obs:
Considered admission
ED Attending Note
-
Portions of this chart may have been created with voice recognition software.� Occasional wrong word or��sound alike� substitutions may have occurred due to the inherent limitations of voice recognition software.
Discharge Plan
Departure
Patient with high blood pressure during this ER visit?: No
Discharge Problem:
Bronchitis, Lethargic
Instructions: Acute Bronchitis, Adult (DC)
Prescriptions:
New
prednisone 10 mg Tablet
See Rx Instructions .ROUTE .COMPLEX Qty: 30 0RF
Rx Instructions:
Take By Mouth:
40 mg daily x3 days, 30 mg daily x3 days,
20 mg daily x3 days, 10 mg daily x3 days.
No Action
valsartan 80 mg tablet
80 mg PO DAILY
quetiapine [Seroquel] 25 mg Tablet
25 mg PO DAILY
carvedilol [Coreg] 6.25 mg Tablet
6.25 mg PO BID
atorvastatin [Lipitor] 10 mg Tablet
10 mg PO QPM
pantoprazole [Protonix] 20 mg Tablet,Delayed Release (Dr/Ec)
20 mg PO DAILY
memantine 10 mg Tablet
10 mg PO BID
quetiapine [Seroquel] 50 mg Tablet
50 mg PO HS
Xarelto 15 mg Tablet
15 mg PO QPM
rivastigmine 13.3 mg/24 hour Patch 24 Hour
13.3 mg TRANSDERMAL DAILY
levofloxacin 250 mg tablet
250 mg PO ONCE Qty: 1 0RF
Referrals:
Gisel Larose DO [Family Provider, General] - Follow up in 1 week
Activity Restrictions/Additional Instructions:
Thank you for visiting the Emergency Department at [facility].
1. Please schedule a follow up appointment as directed. Call first thing tomorrow morning to make an appointment.
2. If indicated, please take your medications as instructed and indicated on discharge paperwork.
3. If any of your symptoms do not improve, or persist, or become more severe within 6-12 hours, please return to the emergency department for further care.
4. Please return to the emergency department if you develop a headache, neck pain/stiffness, fever greater than 100.4F, chest pain, shortness of breath, persistent nausea, vomiting, slurred speech, difficulty walking, numbness/tingling, weakness,
signs of infection or any other symptoms that are worrisome to you.
Please call [phone] if you have any questions.
Interventions
Interventions:
*Risk Screen - Suicide Last Done: 11/08/24 12:03
*Neglect/Abuse Screening Last Done: 11/08/24 13:33
*ED- Fall Risk Assessment Last Done: 11/08/24 12:07
ED- Cardiac Assessment Last Done: 11/08/24 13:33
ED- Pulmonary Assessment Last Done: 11/08/24 13:33
Discharge Date and Time
Print Language: POLISH
[2024-11-08 16:14] LABS: Urine Character Slightly Cloudy (Clear)
[2024-11-08 16:41] LABS: Urine Red Blood Cell 80-90 /HPF (0-2); Urine Urothelial Cell 0-2 /LPF (FEW); Urine White Cell 21-25 /HPF (0-5)
== END 2024-11-08 17:37 | disposition home or self-care (01) ==
LOC: EMR 12:01
PROVIDERS: EMERGENCY PHYSICIAN Emergency Medicine; FAMILY PHYSICIAN Hospitalist
DX: J40 Bronchitis, not specified as acute or chronic (principal); R53.83 Other fatigue; G30.9 Alzheimer's disease, unspecified; F02.80 Dementia in other diseases classified elsewhere, unspecified severity, without behavioral disturbance, psychotic disturbance, mood disturbance, and anxiety; E78.00 Pure hypercholesterolemia, unspecified; I10 Essential (primary) hypertension; I48.91 Unspecified atrial fibrillation; Z95.810 Presence of automatic (implantable) cardiac defibrillator
CPT/HCPCS: 99285; 71046; 80053; 81003; 81015; 83880; 84484; 85025; 87077; 87086; 93005